=== PATIENT | male | born 1995 | race African-American/Black ===

== ENCOUNTER 2017-10-27 09:17 | Emergency (ER) | payer SELFPAY ==
[~2017-10-27] VITALS: Ht 175.3 cm; Wt 186.4 kg
[2017-10-27 09:19] VITALS: BP 188/118; PULSE 74; TEMP 98.8
[2017-10-27] MEDS ORDERED: FLEXERIL 1010 MG/TAB PO (09:24)
== END 2017-10-27 10:55 | disposition home or self-care (01) ==
LOC: COL.ER 09:17
DX: S76.011A Strain of muscle, fascia and tendon of right hip, initial encounter (principal); E66.01 Morbid (severe) obesity due to excess calories; X58.XXXA Exposure to other specified factors, initial encounter; Y93.67 Activity, basketball
CPT/HCPCS: J1885

== ENCOUNTER → 2018-06-27 | Outpatient (CLI) | payer OTHER ==
[~2018-06-27] MED LIST: FLEXERIL 1010 MG/TAB PO
== END ==
LOC: COL.RAD 09:27
DX: M25.552 Pain in left hip (principal); Z87.828 Personal history of other (healed) physical injury and trauma